=== PATIENT | female | born 2000 | race Caucasian/White ===

== ENCOUNTER 2022-07-19 09:49 | Day surgery (SDC) | payer BC ==
[2022-07-19 10:17] VITALS: BMI 30.9
[2022-07-19] MEDS ORDERED: hydrALAZINE 20 MG/ML VIAL SLOW IVP PRN (10:39)
[2022-07-19] MEDS ORDERED: Cyclobenzaprine 10 MG TAB PO SCH (10:45)
[2022-07-19 10:50] LABS: Bilirubin Neg (Negative); Blood, Urine Negative (Negative); CAUTI Indications for Culture Dysuria,urgency,freq; Clarity Clear (Clear); Glucose, Urine (Dipstick) Normal (Negative); Ketone, Urine Negative (Negative); Leukocyte Negative (Negative); Nitrite Negative (Negative); Protein, Urine (Dipstick) Negative (Neg-Trace); Specific Gravity, Urine 1.015 (1.005-1.030); Urobilinogen Normal mg/dL (Less than 2)
[2022-07-19 10:53] LABS: Urine Culture Reflex No No
[2022-07-19 10:58] LABS: Bacteria/HPF Rare-Few HPF (None Seen); RBC/HPF 0-3 HPF (0-3); Squamous Epithelial 0-3 HPF (0-3); WBC/HPF 0-3 HPF (0-3)
== END 2022-07-19 12:39 | disposition home or self-care (01) ==
LOC: CSHLD/OP 09:49
PROVIDERS: ATTEND Obstetrics & Gynecology
DX: O26.893 Other specified pregnancy related conditions, third trimester (principal); M54.9 Dorsalgia, unspecified; O99.343 Other mental disorders complicating pregnancy, third trimester; F41.9 Anxiety disorder, unspecified; Z3A.29 29 weeks gestation of pregnancy; Z79.899 Other long term (current) drug therapy; Z91.040 Latex allergy status; Z88.2 Allergy status to sulfonamides; Z88.1 Allergy status to other antibiotic agents; Z98.890 Other specified postprocedural states
CPT/HCPCS: 81001; 99283

== ENCOUNTER 2022-09-18 01:42 | Inpatient (IN) | payer BC ==
[2022-09-18 02:11] VITALS: BMI 33.6
[2022-09-18] MEDS ORDERED: Butorphanol Tartrate 1 MG/ML VIAL ONE (02:23)
[2022-09-18] MEDS ORDERED: hydrALAZINE 20 MG/ML VIAL SLOW IVP PRN ×3 (02:35→18:58)
[2022-09-18] MEDS ORDERED: Lactated Ringer's 1,000 ML IV SCH ×2 (02:45→05:45)
[2022-09-18] MEDS ORDERED: Butorphanol Tartrate 1 MG/ML VIAL SLOW IVP SCH ×3 (02:45→06:00)
[2022-09-18] MEDS ORDERED: Misoprostol 200 MCG TAB PR PRN (05:42)
[2022-09-18] MEDS ORDERED: Ibuprofen 800 MG TAB PO PRN (05:42)
[2022-09-18] MEDS ORDERED: Ondansetron PF 4 MG/2 ML Vial IVP PRN ×3 (05:42→18:58)
[2022-09-18] MEDS ORDERED: Butorphanol Tartrate 1 MG/ML VIAL SLOW IVP PRN (05:42)
[2022-09-18] MEDS ORDERED: HYDROcodone/Acetaminophen 5/325 mg Tablet PO PRN ×2 (05:42)
[2022-09-18] MEDS ORDERED: Lidocaine 1% (PF) 30 ML VIAL SC PRN (05:42)
[2022-09-18] MEDS ORDERED: Promethazine HCl 25 MG/ML VIAL IM PRN ×2 (05:42→08:50)
[2022-09-18] MEDS ORDERED: Methylergonovine 0.2 MG/ML VIAL IM PRN (05:42)
[2022-09-18] MEDS ORDERED: Acetaminophen 500 MG TAB PO PRN (05:42)
[2022-09-18] MEDS ORDERED: NS w/ Oxytocin 30 units 500 ML IV SCH ×3 (05:45→19:00)
[2022-09-18 06:01] LABS: Hemoglobin 13.6 g/dL (12.0-15.5); Mean Corpuscular HGB CONC 33.6 g/dL (32.0-36.0); Mean Corpuscular Hemoglobin 28.5 pg (27.0-33.0); Mean Corpuscular Volume 84.9 fl (81.6-98.3); Mean Platelet Volume 14.1 fl (7.4-10.4); Platelet Count 131 10x3/uL (150-450); RBC Distribution Width 13.3 % (11.5-14.5); Red Blood Cell (RBC) Count 4.77 10x6/uL (3.90-5.03); White Blood Cell (WBC) Count 15.3 10x3/uL (3.5-10.5)
[2022-09-18] MEDS ORDERED: Penicillin G Potassium 5 MILL.UNITS in Sodium Chloride 0.9% 100 ML IVPB SCH (06:15)
[2022-09-18] MEDS ORDERED: Penicillin G Potassium 2.5 MILL.UNITS in Sodium Chloride 0.9% 50 ML IVPB SCH (06:15)
[2022-09-18] MEDS ORDERED: Fentanyl 2 mcg/Bup 0.1% Cadd 100 ML ONE (06:20)
[2022-09-18 06:34] LABS: Syphilis Antibody Nonreactive (Nonreactive); Syphilis Antibody Index 0.03 S/CO (<1.00 Non-Reactive)
[2022-09-18 06:36] LABS: HBSAg Index 0.15 S/CO (0-0.99); Hep B Surf Ag Non-Reactive S/CO (NonReactive)
[2022-09-18 06:48] LABS: SARS-CoV-2 NAA Rapid Test Not Detected (NotDetected)
[2022-09-18] MEDS ORDERED: Bupivacaine PF 0.5% 30 ML VIAL ONE (08:00)
[2022-09-18] MEDS ORDERED: Bupivacaine 0.25% HCL 30 ML VIAL ONE (08:00)
[2022-09-18] MEDS ORDERED: Moisturizing Cream (Eucerin) 113 GM JAR TOP PRN (08:50)
[2022-09-18] MEDS ORDERED: Lactated Ringer's 500 ML IV PRN (08:50)
[2022-09-18] MEDS ORDERED: ePHEDrine Sulfate 50 MG/10 ML VIAL SLOW IVP PRN (08:50)
[2022-09-18] MEDS ORDERED: Acetaminophen 325 MG TAB PO PRN (08:50)
[2022-09-18] MEDS ORDERED: diphenhydrAMINE 50 MG/ML VIAL IVP PRN (08:50)
[2022-09-18] MEDS ORDERED: Naloxone HCl 0.4 mg/ml Vial IVP PRN ×2 (08:50)
[2022-09-18] MEDS ORDERED: Fentanyl 2 mcg/Bupivacaine 0.1% Cassette 100 ML EPIDURAL SCH (09:00)
[2022-09-18] MEDS ORDERED: Communication Order-Pharmacy FS SCH (09:00)
[2022-09-18] MEDS: Penicillin G 2.5 MILL.units 50 ML IVPB SCH ×2 (10:37→15:59)
[2022-09-18] MEDS ORDERED: Fentanyl 100 MCG/2 ML VIAL ONE (14:12)
[2022-09-18] MEDS ORDERED: Ampicillin 2 GM VIAL ONE (17:29)
[2022-09-18] MEDS ORDERED: Tranexamic Acid 1,000 MG/10 ML VIAL ONE (17:42)
[2022-09-18] MEDS ORDERED: Misoprostol 200 MCG TAB ONE (17:43)
[2022-09-18] MEDS ORDERED: Bisacodyl 10 MG SUPP PR PRN (18:58)
[2022-09-18] MEDS ORDERED: Boostrix 0.5 ML (Tdap) VIAL (>/=7 yrs of age) IM ONE (18:58)
[2022-09-18] MEDS ORDERED: Lanolin Ointment 7 GM TUBE TOP PRN (18:58)
[2022-09-18] MEDS ORDERED: diphenhydrAMINE 25 MG CAP PO PRN (18:58)
[2022-09-18] MEDS ORDERED: Benzocaine-Menthol 82.5 ML CAN TOP PRN (18:58)
[2022-09-18] MEDS ORDERED: Misoprostol 200 MCG TAB VAG PRN (18:58)
[2022-09-18] MEDS ORDERED: Milk Of Magnesia 30 ML UDCUP PO PRN (18:58)
[2022-09-18] MEDS ORDERED: Preparation H Ointment 28 GM TUBE PR PRN (18:58)
[2022-09-18] MEDS ORDERED: Witch Hazel-Glycerin 1 EACH JAR TOP PRN (19:02)
[2022-09-18] MEDS: Ibuprofen 800 MG TAB PO SCH (21:38)
[2022-09-19] MEDS: Ibuprofen 800 MG TAB PO SCH ×3 (06:03→21:27)
[2022-09-19] MEDS: Docusate 100 MG CAP PO SCH ×3 (07:21→21:26)
[2022-09-19] MEDS: Penicillin G 2.5 MILL.units 50 ML IVPB SCH ×2 (07:24→07:25)
[2022-09-19] MEDS: Ferrous Sulfate 325 MG TAB PO SCH ×2 (08:16→18:03)
[2022-09-19] MEDS: HYDROcodone/Acetaminophen 5/325 mg Tablet PO PRN (08:53)
[2022-09-19] MEDS: Prenatal Vitamin 1 TAB PO SCH (08:53)
[2022-09-19] MEDS ORDERED: HYDROcodone/Acetaminophen 5/325 mg Tablet PO PRN (09:00)
[2022-09-19] MEDS ORDERED: Simethicone Chewable 80 MG TAB PO PRN (10:16)
[2022-09-19] MEDS ORDERED: Zolpidem Tartrate 5 MG TAB PO PRN (21:00)
[2022-09-20] MEDS: Ibuprofen 800 MG TAB PO SCH ×3 (05:40→21:10)
[2022-09-20] MEDS: Ferrous Sulfate 325 MG TAB PO SCH ×2 (08:21→16:45)
[2022-09-20] MEDS: Docusate 100 MG CAP PO SCH ×2 (08:21→21:10)
[2022-09-20] MEDS: Prenatal Vitamin 1 TAB PO SCH (08:21)
[2022-09-20] MEDS: HYDROcodone/Acetaminophen 5/325 mg Tablet PO PRN (17:18)
[2022-09-21] MEDS: Ibuprofen 800 MG TAB PO SCH (06:08)
[2022-09-21 07:47] VITALS: BP 134/90; TEMP 97.6
[2022-09-21] MEDS: Docusate 100 MG CAP PO SCH (08:59)
[2022-09-21] MEDS: Ferrous Sulfate 325 MG TAB PO SCH (08:59)
[2022-09-21] MEDS: Prenatal Vitamin 1 TAB PO SCH (08:59)
== END 2022-09-21 12:25 | disposition home or self-care (01) | DRG 807 ==
LOC: CSHLD/OP 01:42 → CSHLD 05:36 → CSHPED 09-19 06:25
PROVIDERS: ADMIT Obstetrics & Gynecology; ATTEND Obstetrics & Gynecology
PROC: 10D07Z6 Extraction of Products of Conception, Vacuum, Via Natural or Artificial Opening (ICD-10-PCS; principal; 2022-09-18)
PROC: 0KQM0ZZ Repair Perineum Muscle, Open Approach (ICD-10-PCS; 2022-09-18)
PROC: 0W8NXZZ Division of Female Perineum, External Approach (ICD-10-PCS; 2022-09-18)
PROC: 10907ZC Drainage of Amniotic Fluid, Therapeutic from Products of Conception, Via Natural or Artificial Opening (ICD-10-PCS; 2022-09-18)
DX: O99.824 Streptococcus B carrier state complicating childbirth (principal); Z37.0 Single live birth; Z3A.37 37 weeks gestation of pregnancy; Z20.822 Contact with and (suspected) exposure to COVID-19; O99.02 Anemia complicating childbirth; D64.9 Anemia, unspecified; O70.1 Second degree perineal laceration during delivery; O32.8XX0 Maternal care for other malpresentation of fetus, not applicable or unspecified; Z87.74 Personal history of (corrected) congenital malformations of heart and circulatory system; Z98.890 Other specified postprocedural states; Z79.899 Other long term (current) drug therapy; Z79.82 Long term (current) use of aspirin; Z88.1 Allergy status to other antibiotic agents; Z91.040 Latex allergy status; Z88.8 Allergy status to other drugs, medicaments and biological substances; Z91.09 Other allergy status, other than to drugs and biological substances; Z88.2 Allergy status to sulfonamides
CPT/HCPCS: 36415; 51702; 85027; 86780; 86850; 86900; 86901; 87340; 99285; J0595; J2405; J2540; J3490; S0020; U0002